=== PATIENT | female | born 1980 | race Caucasian/White ===

== ENCOUNTER 2019-09-17 09:20 | Emergency (ER) | payer OTHER ==
[~2019-09-17] VITALS: Ht 165.1 cm; Wt 90.7 kg
[2019-09-17 09:24] VITALS: BP 154/96
--- NOTE | 2019-09-17 09:40 | NUR ---
diziness and numbness on left side of body since this morning. vomited once this morning.neuro wnl. family hx of MS . Pt awake, alert, afibrile , ambulatory with steady gait. no facial assymmetry , Ue and Le motor 5/. pmh- pre diabetes
--- NOTE | 2019-09-17 09:42 | NUR ---
dr diane at bedside evaluating pt.
[2019-09-17] MEDS ORDERED: KETOROLAC 60 MG/2 ML VIAL IM ONE (09:50)
[2019-09-17 10:16] VITALS: BP 154/96
--- NOTE | 2019-09-17 10:17 | NUR ---
Patient discharged with v/s stable. Written and verbal after care instructions given and explained. Patient alert, oriented and verbalized understanding of instructions. Ambulatory with steady gait. All questions addressed prior to discharge. ID band removed. Patient advised to follow up with PMD. Rx of Zofran and Motrin given. Patient educated on indication of medication including possible reaction and side effects. Opportunity to ask questions provided and answered.
== END 2019-09-17 10:16 | disposition home or self-care (01) ==
LOC: MED 09:20
DX: R53.1 Weakness (principal); R51 Headache; R11.2 Nausea with vomiting, unspecified
CPT/HCPCS: 81002; 81025; 96372; 99283; J1885